=== PATIENT | male | born 2000 ===

== ENCOUNTER 2021-04-21 23:26 | Emergency (ER) | payer BC ==
--- NOTE | 2021-04-22 00:55 | ER ---
Nurse's Notes [facility] Name: Martin Johansen Age: 20 yrs Sex: Male : 2000 Arrival Date: 04/21/2021 Time: 23:58 Bed Waiting Private MD: Diagnosis: Sprain of other specified parts of left knee Presentation: 04/21 23:58 Chief complaint: Patient states: left knee popped after squatting down and putting more em weight on it, denies injury. Coronavirus screen: Client denies travel out of the [place] in the last 14 days. Ebola Screen: Patient negative for fever greater than or equal to 101.5 degrees Fahrenheit, and additional compatible Ebola Virus Disease symptoms Patient denies exposure to infectious person. Patient denies travel to an Ebola-affected area in the 21 days before illness onset. No symptoms or risks identified at this time. Initial Sepsis Screen: Does the patient meet any 2 criteria? No. Patient's initial sepsis screen is negative. Does the patient have a suspected source of infection? No. Patient's initial sepsis screen is negative. Risk Assessment: Do you want to hurt yourself or someone else? Patient reports no desire to harm self or others. Onset of symptoms was April 22, 2021. 23:58 Method Of Arrival: Ambulatory em 23:58 Acuity: ROSAURA 4 em Historical: - Allergies: 04/22 00:01 No Known Allergies; em - PMHx: 00:01 None; em - PSHx: 00:01 None; em - Immunization history:: Client reports having NOT received the Covid vaccine. - Social history:: Smoking status: Reported history of juuling and/or vaping. - Family history:: not pertinent. - Hospitalizations: : No recent hospitalization is reported. Screenin:02 Abuse screen: Denies threats or abuse. Nutritional screening: No deficits noted. em Tuberculosis screening: No symptoms or risk factors identified. Fall Risk None identified. Assessment: 00:02 General: Appears in no apparent distress. comfortable, Behavior is calm, cooperative, em appropriate for age. Pain: Complains of pain in left knee Pain currently is 3 out of 10 on a pain scale. Neuro: Level of Consciousness is awake, alert, obeys commands, Oriented to person, place, time, situation, Appropriate for age. Cardiovascular: Capillary refill < 3 seconds Patient's skin is warm and dry. Respiratory: Airway is patent Respiratory effort is even, unlabored, Respiratory pattern is regular, symmetrical. Derm: Skin is intact, is healthy with good turgor, Skin is pink, warm \T\ dry. Musculoskeletal: Capillary refill < 3 seconds, Range of motion: intact in all extremities. Vital Signs: 04/21 23:58 BP 131 / 72; Pulse 63; Resp 10; Temp 97.8; Pulse Ox 99% on R/A; Weight 83.46 kg; Height em 6 ft. 2 in. (187.96 cm); Pain 2/10; 04/22 00:02 Resp 14; em 04/21 23:58 Body Mass Index 23.62 (83.46 kg, 187.96 cm) em ED Course: 04/21 23:58 Patient arrived in ED. em 04/22 00:01 Triage completed. em 00:01 Arm band placed on. em 00:02 Patient has correct armband on for positive identification. em 00:20 Kushal Ruiz MD is Attending Physician. rn 00:54 Clem Feliciano MD is Referral Physician. rn 01:01 Knee Left 3 View XRAY In Process Unspecified. EDMS 01:02 Dmitry Price RN is Primary Nurse. em 01:05 No provider procedures requiring assistance completed. Patient did not have IV access em during this emergency room visit. Administered Medications: No medications were administered Outcome: 00:54 Discharge ordered by . rn 01:05 Discharged to home ambulatory. em 01:05 Condition: stable 01:05 Discharge instructions given to patient, Instructed on discharge instructions, follow up and referral plans. Demonstrated understanding of instructions, follow-up care. 01:08 Patient left the ED. em Signatures: Dispatcher [employer] Dmitry Lynn, JUSTINO RN em Kushal Ruiz MD MD rn
--- NOTE | 2021-04-22 00:55 | EDPHYS ---
Physician Documentation [facility] Name: Martin Johansen Age: 20 yrs Sex: Male : 2000 Arrival Date: 04/21/2021 Time: 23:58 Bed Waiting Private MD: ED Physician Kushal Ruiz HPI: 04/22 00:20 This 20 yrs old Other Male presents to ER via Ambulatory with complaints of Knee Pain. rn 00:20 The patient presents with an injury, pain, that is acute. The complaints affect the rn left knee. Onset: The symptoms/episode began/occurred today. Modifying factors: The symptoms are alleviated by remaining still, the symptoms are aggravated by movement, bending knee. Associated signs and symptoms: Pertinent negatives fever, numbness, swelling, tingling, warmth, weakness. Treatment prior to arrival includes: no previous treatment. Severity of symptoms: At their worst the symptoms were moderate, in the emergency department the symptoms have improved. The patient has experienced a previous episode. The patient has not recently seen a physician. Patient reports was at work squatting, rotated, felt like left knee popped and gave out. States was unable to stand for about 20 minutes then was able to stand and walk. Pain markedly improved but still has a little bit of discomfort when walking and bending. States pre-existing injury to left knee. No history of patellar dislocation. Currently ambulatory and walked into the ER.. Historical: - Allergies: 00:01 No Known Allergies; em - PMHx: 00:01 None; em - PSHx: 00:01 None; em - Immunization history:: Client reports having NOT received the Covid vaccine. - Social history:: Smoking status: Reported history of juuling and/or vaping. - Family history:: not pertinent. - Hospitalizations: : No recent hospitalization is reported. ROS: 00:20 Constitutional: Negative for fever, chills, and weight loss, MS/Extremity: Positive for rn injury and pain to left knee Skin: Negative for injury, rash, and discoloration, Neuro: Negative for weakness, numbness, tingling Exam: 00:20 Constitutional: This is a well developed, well nourished patient who is awake, alert, rn and in no acute distress. Sitting normal in a chair in the lobby. Skin: Warm, dry MS/ Extremity: Pulses equal, no cyanosis. Neurovascular intact. Full, normal range of motion. Equal circumference. Vital Signs: 04/21 23:58 BP 131 / 72; Pulse 63; Resp 10; Temp 97.8; Pulse Ox 99% on R/A; Weight 83.46 kg; Height em 6 ft. 2 in. (187.96 cm); Pain 2/10; 04/22 00:02 Resp 14; em 04/21 23:58 Body Mass Index 23.62 (83.46 kg, 187.96 cm) em MDM: 00:20 Patient medically screened. rn 00:53 Differential diagnosis: closed fracture, tendonitis. Differential diagnosis: Patellar rn dislocation, internal derangement of knee. Data reviewed: vital signs, nurses notes. Test interpretation: by ED physician or midlevel provider: plain radiologic studies, X-ray left knee without acute fracture or dislocation, negative for patellar dislocation.. Counseling: I had a detailed discussion with the patient and/or guardian regarding: the historical points, exam findings, and any diagnostic results supporting the discharge/admit diagnosis, radiology results, the need for outpatient follow up, to return to the emergency department if symptoms worsen or persist or if there are any questions or concerns that arise at home. Special discussion: I discussed with the patient/guardian in detail that at this point there is no indication for admission to the hospital. It is understood, however, that if the symptoms persist or worsen the patient needs to return immediately for re-evaluation. Based on the history and exam findings, there is no indication for further emergent testing or inpatient evaluation. I discussed with the patient/guardian the need to see the orthopedic surgeon for further evaluation of the symptoms. Special discussion: Further emergent ED testing is not indicated at this point in time. I discussed with the patient/guardian in detail the need to arrange with the PCP or specialist further outpatient testing, MRI. ED course: Within theNo acute findings on x-ray. Will DC home ductions to use knee brace. Will need MRI knee if continues to worsen or not improve. 04/22 00:01 Order name: Knee Left 3 View XRAY em Administered Medications: No medications were administered Disposition Summary: 04/22/21 00:54 Discharge Ordered Location: Home rn Problem: new rn Symptoms: have improved rn Condition: Stable rn Diagnosis - Sprain of other specified parts of left knee rn Followup: rn - With: Clem Feliciano MD - When: As needed - Reason: Recheck today's complaints, Re-evaluation by your physician Discharge Instructions: - Discharge Summary Sheet rn - Knee Sprain, Adult rn - Acute Knee Pain, Adult rn Forms: - Medication Reconciliation Form rn - Thank You Letter rn - Work release form em - Antibiotic alternative education teacher - Prescription Opioid Use rn Signatures: Dispatcher [employer] Dmitry Lynn RN RN Kushal Feliciano MD MD rn
[2021-04-22 01:13] VITALS: BP 131/72; TEMP 97.8; O2SAT 99
--- NOTE | 2021-04-22 07:07 | RAD REPORT ---
EXAM DESCRIPTION: RAD - Knee Left 3 View - 04/22/2021 1:01 am CLINICAL HISTORY: PAIN COMPARISON: No comparisons FINDINGS: No left knee fracture or malalignment. No knee effusion. IMPRESSION: Unremarkable left knee.
== END 2021-04-22 01:08 | disposition home or self-care (01) ==
LOC: ER 23:26
DX: S83.8X2A Sprain of other specified parts of left knee, initial encounter (principal)
CPT/HCPCS: 99283